=== PATIENT | male | born 1985 | race Caucasian/White ===

== ENCOUNTER 2017-07-25 17:03 | Emergency (ER) | payer OTHER ==
[~2017-07-25] VITALS: Ht 182.9 cm; Wt 120.2 kg
--- NOTE | 2017-07-25 19:09 | ED CARDIAC/CP/PALPITATIONS ---
History of Present Illness General Chief Complaint: Chest Pain Stated Complaint: "I GOT CHEST PAIN..."MULTIPLE COMPLAINTS Source: patient Exam Limitations: no limitations Vital Signs & Intake/Output Vital Signs & Intake/Output Vital Signs Date Time Temp Pulse Resp B/P B/P Pulse O2 O2 Flow FiO2 Mean Ox Delivery Rate 07/25 1952 98 07/25 1724 98.4 89 18 144/82 97 Room Air Allergies Coded Allergies: lactose (Intermediate, GI 07/25/17) Penicillins (UNKNOWN 07/25/17) codeine (UNKNOWN 07/25/17) Triage Note: PT TO ER C/C SINUS CONGESTION, CHEST PAIN WITH DEEP INSPIRATION AND COUGH X 4 DAYS. DENIES FEVERS/CHILLS Triage Nurses Notes Reviewed? yes HPI: Patient presents for evaluation of chest pain/tightness that has worsened over the past 2 days. Symptoms worsen with deep breath and coughing. Patient states he is having a squeezing tight central chest pain that only occurs with deep breath or cough. His chest pain is intermittent in that regard. He states he also wheezes particularly at night. His cough is only occasional and is nonproductive. He denies any associated leg swelling or leg pain. He is a 3 pack per day smoker over the past 4 years but has been a smoker since age 10. In addition he is complaining of a reddish brown rash of the thighs bilaterally. (Chey MERCEDES,Ruben Snow) Past History Travel History Traveled to [place] past 21 day No Medical History Any Pertinent Medical History? see below for history Surgical History Surgical History: non-contributory Psychosocial History What is your primary language Mauritian Tobacco Use: Current Daily Use Daily Tobacco Use Amount/Type: => 5 Cigarettes daily Family History Hx Contributory? No (Ruben Guerrier MD) Review of Systems Review of Systems Constitutional: Reports: no symptoms. EENTM: Reports: no symptoms. Respiratory: Reports: see HPI. Cardiovascular: Reports: see HPI. GI: Reports: no symptoms. Genitourinary: Reports: no symptoms. Musculoskeletal: Reports: no symptoms. Skin: Reports: see HPI. Neurological/Psychological: Reports: no symptoms. Hematologic/Endocrine: Reports: no symptoms. Immunologic/Allergic: Reports: no symptoms. All Other Systems: Reviewed and Negative (Chey MERCEDES,Ruben Snow) Physical Exam Physical Exam Cardiovascular: SEE BELOW Comments: Gen.: Well-nourished, well-developed, no respiratory distress at rest and with deep inspiration patient does cough vigorously Head: Normocephalic, atraumatic. Eyes: Normal inspection bilaterally Ears: Normal inspection bilaterally Nose: Normal inspection Throat/mouth : Moist mucosa Neck: Supple, full range of motion, no goiter Heart: Regular rate and rhythm, no murmurs rubs or gallops Lungs: Decreased air entry bilaterally with end expiratory wheezing particularly with forced expiration Chest: Nontender Back: Normal range of motion Abdomen: Soft, nontender, nondistended, normal bowel sounds Extremities: Normal range of motion grossly, equal radial pulses, no cyanosis clubbing or edema Neurologic: Cranial nerves grossly intact, speech is clear Skin: warm and dry, symmetrically distributed macular papular rash, blanching, of the medial thighs and lower abdomen Psychiatric: Calm, cooperative, no apparent delusions or hallucinations Core Measures ACS in differential dx? No CVA/TIA Diagnosis No Sepsis Present: No Sepsis Focused Exam Completed? 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 (Chey MERCEDES,Ruben Snow) Diagnostic Imaging: Discussed w/RAD: Radiology Read. CXR Impression: no acute abnormality (Amari Babin MD) Departure Departure Disposition: HOME OR SELF CARE Condition: Stable Clinical Impression Primary Impression: Asthmatic bronchitis Secondary Impressions: Contact dermatitis, Encounter for smoking cessation counseling Referrals: Patient Has No Primary Care Dr (PCP/Family) Departure Forms: Customer Survey General Discharge Information (Chey MERCEDES,Ruben Snow) Departure Time of Disposition: 2008 Prescriptions: Current Visit Scripts Albuterol Sulfate (Proair Hfa) 2 PUF INH Q4-6 PRN PRN wheezing #1 INHAL Methylprednisolone. (Medrol) 0 PO SEE ADMIN CRITERIA #1 PAC Azithromycin (Zithromax) 1 DP PO AD #1 DP (Amari Babin MD) Critical Care Note Critical Care Note Critical Care Time: non-applicable (Amari Babin MD)
--- NOTE | 2017-07-25 19:42 | RADIOLOGY REPORT ---
EXAMINATION: XR CHEST CLINICAL INFORMATION: Cough and wheezing. COMPARISON: None TECHNIQUE: 2 views of the chest were obtained. FINDINGS: No significant abnormality is noted involving the heart, lungs, mediastinum, bony thorax or soft tissues. IMPRESSION: Unremarkable examination.
[2017-07-25] MEDS ORDERED: ZITHROMAX250 M2 PO (20:08)
[2017-07-25] MEDS ORDERED: PROAIR HFA8.5 GM INH (20:08)
[2017-07-25] MEDS ORDERED: MEDROL4 M2 PO (20:08)
[2017-07-25 20:39] VITALS: BP 138/84
== END 2017-07-25 20:39 ==
LOC: ERH 17:03
DX: J45.909 Unspecified asthma, uncomplicated (principal); L25.9 Unspecified contact dermatitis, unspecified cause; F17.210 Nicotine dependence, cigarettes, uncomplicated; R07.89 Other chest pain
CPT/HCPCS: 1263; 71046; 93005; 93010; 96372; J2930